=== PATIENT | male | born 1980 | race Caucasian/White ===

== ENCOUNTER → 2025-02-23 11:32 | Outpatient (REF) | payer BC, SELFPAY | LOC: HWRAD 11:32 | PROVIDERS: ATTENDING PHYSICIAN Physician Assistant Medical; FAMILY PHYSICIAN Student in an Organized Health Care Education/Training Program | DX: D17.1 Benign lipomatous neoplasm of skin and subcutaneous tissue of trunk (principal) | CPT/HCPCS: 72110 ==